=== PATIENT | male | born 1955 | race African-American/Black ===

== ENCOUNTER 2019-09-30 13:17 | Emergency (ER) | payer MEDICARE ==
[2019-09-30 14:00] LABS: BASOPHILS % (AUTO) 0.4 % (0.0-5.0); EOSINOPHILS % (AUTO) 5.6 % (0.0-8.0); HEMATOCRIT 43.8 % (42-54); LYMPHOCYTES % (AUTO) 48.1 % (21.0-51.0); MEAN CORPUSCULAR HEMOGLOBIN 31.8 pg (27.0-33.0); MEAN CORPUSCULAR HGB CONC 33.8 g/dL (32.0-36.0); MONOCYTES % (AUTO) 11.6 % (3.0-13.0); NEUTROPHILS % (AUTO) 34.1 % (40.0-77.0); PLATELET COUNT (AUTO) 173 K/uL (130-400); RED BLOOD CELL COUNT(AUTO) 4.66 MIL/uL (4.50-6.20); RED CELL DISTRIBUTION WIDTH 13.9 % (11.0-15.5); WHITE BLOOD COUNT (AUTO) 4.8 K/uL (4.8-10.8)
[2019-09-30 14:11] LABS: CREATININE 1.1 mg/dL (0.5-1.5); POTASSIUM 4.6 mmol/L (3.5-5.1)
[2019-09-30] MEDS ORDERED: ACETAMINOPHEN EXTRA STRENGTH 500 MG TABLET ONE (14:35)
[2019-09-30] MEDS ORDERED: ACETAMINOPHEN 325 MG TAB ONE (14:38)
[2019-09-30] MEDS ORDERED: LIDOCAINE 5% TOPICAL PATCH TP ONE (15:36)
== END 2019-09-30 15:42 | disposition home or self-care (01) ==
LOC: EDH 13:17
DX: M25.511 Pain in right shoulder (principal)
CPT/HCPCS: 36415; 73030; 80048; 84484; 85025; 93005

== ENCOUNTER → 2019-10-26 | Outpatient (CLI) | payer MEDICARE | END | disposition home or self-care (01) | LOC: EDUNIT# 08:00 → SHCH 08:13 | PROVIDERS: ATTEND Internal Medicine Cardiovascular Disease | DX: K55.1 Chronic vascular disorders of intestine (principal); R10.31 Right lower quadrant pain | CPT/HCPCS: 93978 ==

== ENCOUNTER → 2019-11-24 | Outpatient (CLI) | payer MEDICARE ==
[~2019-11-24] MED LIST: REGADENOSON 0.4 MG/5 ML PF SYG IVP SCH
== END | disposition home or self-care (01) ==
LOC: SHCH 08:09
PROVIDERS: ATTEND Internal Medicine Cardiovascular Disease
DX: I20.9 Angina pectoris, unspecified (principal); I25.10 Atherosclerotic heart disease of native coronary artery without angina pectoris; R07.9 Chest pain, unspecified
CPT/HCPCS: 78452; 93017; 96374; A9500 ×2; J2785

== ENCOUNTER → 2020-04-03 | Outpatient (CLI) | payer MEDICARE | END | disposition home or self-care (01) | LOC: SHCH 09:20 | PROVIDERS: ATTEND Internal Medicine Cardiovascular Disease | DX: I50.22 Chronic systolic (congestive) heart failure (principal); I25.5 Ischemic cardiomyopathy | CPT/HCPCS: 93306; 93356 ==

== ENCOUNTER 2021-06-17 11:50 | Emergency (ER) | payer MEDICARE ==
[~2021-06-17] VITALS: Ht 180.3 cm; Wt 107.0 kg
[2021-06-17 12:20] VITALS: BP 119/92
[2021-06-17] MEDS ORDERED: TORS20TA4 PO (12:20)
[2021-06-17] MEDS ORDERED: DOCU100C33 PO (12:20)
[2021-06-17] MEDS ORDERED: RIVA20TA PO (12:20)
[2021-06-17] MEDS ORDERED: AMIO200T68 PO (12:20)
[2021-06-17] MEDS ORDERED: ATOR40TA71 PO (12:20)
[2021-06-17] MEDS ORDERED: FURO40TA5 PO (12:20)
[2021-06-17] MEDS ORDERED: OMEP40CA21 PO (12:20)
[2021-06-17] MEDS ORDERED: SOTA80TA PO (12:20)
[2021-06-17] MEDS ORDERED: POTA-79 PO (12:20)
[2021-06-17] MEDS ORDERED: EZET10TA48 PO (12:20)
[2021-06-17] MEDS ORDERED: DOXA2TAB2 PO (12:20)
[2021-06-17] MEDS ORDERED: DIGO125T71 PO (12:20)
[2021-06-17] MEDS ORDERED: METO-408 PO (12:20)
[2021-06-17 12:31] LABS: BASOPHILS % (AUTO) 0.7 % (0.0-5.0); EOSINOPHILS % (AUTO) 3.2 % (0.0-8.0); HEMATOCRIT 45.9 % (42-54); LYMPHOCYTES % (AUTO) 38.8 % (21.0-51.0); MEAN CORPUSCULAR HEMOGLOBIN 31.4 pg (27.0-33.0); MEAN CORPUSCULAR HGB CONC 33.6 g/dL (32.0-36.0); MEAN CORPUSCULAR VOLUME 93.7 fL (79-99); MONOCYTES % (AUTO) 8.7 % (3.0-13.0); NEUTROPHILS % (AUTO) 48.3 % (40.0-77.0); PLATELET COUNT (AUTO) 192 K/uL (130-400); RED CELL DISTRIBUTION WIDTH 15.5 % (11.0-15.5); WHITE BLOOD COUNT (AUTO) 5.9 K/uL (4.8-10.8)
[2021-06-17 12:36] LABS: INR 1.27 (0.85-1.15); PROTHROMBIN TIME 13.5 SEC (9.6-11.6)
[2021-06-17 12:38] LABS: PARTIAL THROMBOPLASTIN TIME 34.8 SEC (26.3-35.5)
[2021-06-17 12:52] LABS: CREATININE 1.3 mg/dL (0.5-1.5); POTASSIUM 4.6 mmol/L (3.5-5.1)
[2021-06-17 12:57] LABS: B-TYPE NATRIURETIC PEPTIDE 872 pg/mL (0-100)
[2021-06-17 13:13] LABS: ALBUMIN 3.5 g/dL (3.5-5.0); BILIRUBIN,TOTAL 0.5 mg/dL (0.2-1.0); DIGOXIN 0.37 ng/mL (0.50-2.00); TOTAL PROTEIN, SERUM 7.6 g/dL (6.0-8.3)
== END 2021-06-17 14:47 | disposition home or self-care (01) ==
LOC: EDH 11:50
DX: R10.13 Epigastric pain (principal); E87.70 Fluid overload, unspecified; K21.9 Gastro-esophageal reflux disease without esophagitis; E78.00 Pure hypercholesterolemia, unspecified; Z79.899 Other long term (current) drug therapy; Z95.818 Presence of other cardiac implants and grafts
CPT/HCPCS: 36415; 71045; 74176; 80053; 80162; 82550; 83690; 83874; 83880; 84484; 85025; 85610; 85730; 93005

== ENCOUNTER → 2021-08-07 | Outpatient (CLI) | payer MEDICARE ==
[~2021-08-07] MED LIST changes: +AMIO200T68 PO; +ATOR40TA71 PO; +DIGO125T71 PO; +DOCU100C33 PO; +DOXA2TAB2 PO; +EZET10TA48 PO; +FURO40TA5 PO; +METO-408 PO; +OMEP40CA21 PO; +POTA-79 PO; -REGADENOSON 0.4 MG/5 ML PF SYG IVP SCH; +RIVA20TA PO; +SOTA80TA PO; +TORS20TA4 PO
[2021-08-07 12:43] LABS: CREATININE 1.3 mg/dL (0.5-1.5); POTASSIUM 4.3 mmol/L (3.5-5.1)
== END | disposition home or self-care (01) ==
LOC: LAB 10:03
PROVIDERS: ATTEND Internal Medicine Cardiovascular Disease
DX: I10 Essential (primary) hypertension (principal)
CPT/HCPCS: 36415; 80048

== ENCOUNTER → 2021-09-06 | Outpatient (CLI) | payer MEDICARE | END | disposition home or self-care (01) | LOC: SHCH 13:54 | PROVIDERS: ATTEND Internal Medicine Cardiovascular Disease | DX: I08.3 Combined rheumatic disorders of mitral, aortic and tricuspid valves (principal); I27.20 Pulmonary hypertension, unspecified; I11.0 Hypertensive heart disease with heart failure; I50.9 Heart failure, unspecified; I25.10 Atherosclerotic heart disease of native coronary artery without angina pectoris; I25.2 Old myocardial infarction; Z95.1 Presence of aortocoronary bypass graft; Z95.810 Presence of automatic (implantable) cardiac defibrillator | CPT/HCPCS: 93306 ==

== ENCOUNTER → 2021-09-18 | Outpatient (CLI) | payer MEDICARE | END | disposition home or self-care (01) | LOC: SHCH 08:11 | PROVIDERS: ATTEND Internal Medicine Cardiovascular Disease | DX: I70.293 Other atherosclerosis of native arteries of extremities, bilateral legs (principal); I71.4 Abdominal aortic aneurysm, without rupture | CPT/HCPCS: 93925; 93978 ==